=== PATIENT | female | born 1985 | race Caucasian/White ===

== ENCOUNTER 2020-12-21 12:21 | Emergency (ER) | payer SELFPAY ==
[2020-12-21 14:31] LABS: HEMOGLOBIN 11.7 gm/dl (12.3-15.3); RED BLOOD COUNT 4.63 M/UL (4.00-5.10); WHITE BLOOD COUNT 3.3 K/UL (4.5-11.0)
[2020-12-21 15:40] LABS: BUN/CREATININE RATIO 12 (0-10)
[2020-12-21] MEDS ORDERED: TESSALON PERLE100 MG PO (17:24)
[2020-12-22] MEDS ORDERED: [UNRECOGNIZED DRUG - OTHER] PO (20:07)
[2020-12-22] MEDS ORDERED: ZOFRAN ODT 4 MG4 MG SL (20:07)
== END 2020-12-21 17:50 | disposition home or self-care (01) ==
LOC: ER1 12:21
PROVIDERS: Emergency Medicine
DX: U07.1 COVID-19 (principal); E11.9 Type 2 diabetes mellitus without complications; Z90.710 Acquired absence of both cervix and uterus; E66.9 Obesity, unspecified
CPT/HCPCS: 36600; 71045; 80053; 81001; 82550; 82553; 82803; 83605; 83874; 84484; 84703; 85025; 85379; 87040; 94640; 94664; 94760; 99284

== ENCOUNTER 2020-12-22 14:44 | Emergency (ER) | payer SELFPAY ==
[~2020-12-22 14:44] MED LIST: TESSALON PERLE100 MG PO
[2020-12-22 15:42] LABS: HEMOGLOBIN 11.9 gm/dl (12.3-15.3); RED BLOOD COUNT 4.72 M/UL (4.00-5.10); WHITE BLOOD COUNT 3.7 K/UL (4.5-11.0)
[2020-12-22 16:04] LABS: BUN/CREATININE RATIO 9 (0-10)
[2020-12-22] MEDS ORDERED: [UNRECOGNIZED DRUG - OTHER] PO (20:07)
[2020-12-22] MEDS ORDERED: ZOFRAN ODT 4 MG4 MG SL (20:07)
== END 2020-12-22 20:29 | disposition home or self-care (01) ==
LOC: ER1 14:44
PROVIDERS: Physician Assistant Medical
DX: U07.1 COVID-19 (principal); J12.82 Pneumonia due to coronavirus disease 2019; E11.9 Type 2 diabetes mellitus without complications; Z90.710 Acquired absence of both cervix and uterus
CPT/HCPCS: 36600; 71045; 80053; 82803; 85025; 96374; 96375; 99285; J0696; J1100

== ENCOUNTER 2021-09-25 13:51 | Emergency (ER) | payer OTHER ==
[~2021-09-25 13:51] MED LIST changes: +ZOFRAN ODT 4 MG4 MG SL; +[UNRECOGNIZED DRUG - OTHER] PO
[2021-09-25 16:49] LABS: HEMOGLOBIN 12.1 gm/dl (12.3-15.3); RED BLOOD COUNT 4.86 M/UL (4.00-5.10); WHITE BLOOD COUNT 8.8 K/UL (4.5-11.0)
[2021-09-25 17:02] LABS: BUN/CREATININE RATIO 21 (0-10)
[2021-09-25] MEDS ORDERED: CEPHALEXIN500 M1 PO (18:22)
[2021-09-25] MEDS ORDERED: PYRIDIUM200 MG PO (18:22)
== END 2021-09-25 18:48 | disposition home or self-care (01) ==
LOC: ER1 13:51
PROVIDERS: Physician Assistant
DX: R10.9 Unspecified abdominal pain (principal); R31.9 Hematuria, unspecified; R82.998 Other abnormal findings in urine; E11.9 Type 2 diabetes mellitus without complications; K21.9 Gastro-esophageal reflux disease without esophagitis; Z90.710 Acquired absence of both cervix and uterus
CPT/HCPCS: 80053; 80307; 81001; 83690; 85025; 87086; 96374; 99284; J0696